=== PATIENT | male | born 1990 | race Caucasian/White ===

== ENCOUNTER 2021-02-03 05:03 | Emergency (ER) | payer MEDICAID ==
[~2021-02-03] VITALS: Ht 175.3 cm; Wt 89.7 kg
[2021-02-03] MEDS ORDERED: ONDANSETRON 2MG/ML, 2ML ONE (05:53)
[2021-02-03] MEDS ORDERED: MORPHINE SULFATE 4 MG/ML, 1ML ONE ×3 (05:54→09:19)
[2021-02-03] MEDS ORDERED: SODIUM CHLORIDE 0.9% 1,000ML IVBOLUS ONE (06:00)
[2021-02-03] MEDS ORDERED: ONDANSETRON 2MG/ML, 2ML IVPush ONE (06:00)
[2021-02-03] MEDS ORDERED: SODIUM CHLORIDE FLUSH 10ML SYR IVF ONE (06:00)
[2021-02-03] MEDS ORDERED: PLEASE ENTER ALLERGIES MC SCH (06:00)
[2021-02-03] MEDS ORDERED: MORPHINE SULFATE 4 MG/ML, 1ML IVPush PRN ×2 (06:00→09:00)
[2021-02-03 06:11] LABS: BASOPHILS % (AUTO) 1 % (0-1); EOSINOPHILS % (AUTO) 0 % (1-7); LYMPHOCYTES % (AUTO) 7 % (22-44); MEAN CORPUSCULAR HEMOGLOBIN 31.4 pg (27.5-34.5); MEAN CORPUSCULAR HGB CONC 34.4 g/dL (33.2-36.2); MEAN PLATELET VOLUME 6.9 fL (7.4-10.4); MONOCYTES % (AUTO) 8 % (2-9); NEUTROPHILS % (AUTO) 85 % (42-75); PLATELET COUNT 297 x10^3/uL (130-400); RED BLOOD COUNT 4.75 x10^6/uL (4.38-5.82); RED CELL DISTRIBUTION WIDTH 13.6 % (9.4-14.8)
[2021-02-03 06:26] LABS: ANION GAP 16 mmol/L (5-15); CALCIUM 8.5 mg/dL (8.5-10.1); CHLORIDE 94 mmol/L (98-107); CREATININE 1.19 mg/dL (0.7-1.3)
[2021-02-03 06:27] LABS: ALANINE AMINOTRANSFERASE 31 U/L (12-78); ALBUMIN 4.2 g/dL (3.4-5.0)
[2021-02-03 06:29] LABS: ALKALINE PHOSPHATASE 70 U/L (45-117); BILIRUBIN,TOTAL 1.2 mg/dL (0.2-1.0); TOTAL PROTEIN 7.8 g/dL (6.4-8.2)
[2021-02-03] MEDS ORDERED: SODIUM CHLORIDE 0.9% 1,000 ML IV SCH (06:55)
--- NOTE | 2021-02-03 06:57 | NUR ---
REPORT GIVEN TO KAROLINA HERNANDEZ
--- NOTE | 2021-02-03 07:01 | NUR ---
PT RESTING IN BED, CALL LIGHT IN REACH. VSS.
--- NOTE | 2021-02-03 07:45 | NUR ---
ERMD AT BEDSIDE FOR EVALUATION
[2021-02-03] MEDS ORDERED: PROCHLORPERAZINE 5 MG/ML, 2ML IVPush ONE (09:00)
[2021-02-03] MEDS ORDERED: PROCHLORPERAZINE 5 MG/ML, 2ML ONE (09:19)
--- NOTE | 2021-02-03 10:30 | NUR ---
steady ambulation to bathroom
--- NOTE | 2021-02-03 10:58 | NUR ---
ermd at bedside to discuss poc
[2021-02-03 11:07] VITALS: BP 129/77
== END 2021-02-03 11:09 | disposition home or self-care (01) ==
LOC: ED 09:09
DX: K85.20 Alcohol induced acute pancreatitis without necrosis or infection (principal); R10.13 Epigastric pain; R11.2 Nausea with vomiting, unspecified; E11.9 Type 2 diabetes mellitus without complications
CPT/HCPCS: 36415; 80053; 83690; 85025; 96361; 96374; 96375; 96376; 99285; J0780; J2270; J2405; J7030